=== PATIENT | female | born 1935 | race Hispanic/Latino ===

== ENCOUNTER 2018-03-31 20:09 | Emergency (ER) | payer MEDICARE, OTHER ==
[2018-03-31] MEDS ORDERED: NAPROXEN 250 MG TAB ONE (21:13)
== END 2018-03-31 21:21 | disposition home or self-care (01) ==
LOC: EDH 20:09
DX: S29.011A Strain of muscle and tendon of front wall of thorax, initial encounter (principal); I10 Essential (primary) hypertension; E11.9 Type 2 diabetes mellitus without complications; Z88.0 Allergy status to penicillin; V49.59XA Passenger injured in collision with other motor vehicles in traffic accident, initial encounter; Y93.89 Activity, other specified; Y92.89 Other specified places as the place of occurrence of the external cause; Y99.8 Other external cause status
CPT/HCPCS: 71100